=== PATIENT | male | born 1980 | race Caucasian/White ===

== ENCOUNTER 2016-09-25 09:49 | Inpatient (IN) | payer OTHER ==
[2016-09-25 10:10] VITALS: BMI 30.4
--- NOTE | 2016-09-25 10:35 | HP ---
COWS - Scale Resting Pulse: 1= [place] 81-100 Sweatin= Chills/Flushing Restless Observation: 3= Extraneous Movement Pupil Size: 0= Normal to Room Light Bone or Joint Aches: 1= Mild Discomfort Runny Nose/ Eye Tearin= Nasal Congestion GI Upset > 30mins: 1= Stomach Cramp Tremor Observation: 1= Tremor [place], Not Seen Yawning Observation: 1= 1-2x During Session Anxiety or Irritability: 2=Irritable/Anxious Goose Flesh Skin: 0=Smooth Skin COWS Score: 12 CIWA Score - CIWA Score Nausea/Vomitin-Mild Nausea/No Vomiting Muscle Tremors: 4-Moderate,w/Arms Extend Anxiety: 4-Mod. Anxious/Guarded Agitation: 2 Paroxysmal Sweats: 1-Minimal Palms Moist Orientation: 1-Uncertain about Date Tacttile Disturbances: 1-Very Mild Itch/Numbness Auditory Disturbances: 1-Very Mild Visual Disturbances: 1-Very Mild Sensitivity Headache: 2-Mild CIWA-Ar Total Score: 18 Admission ROS S - HPI Chief Complaint: I'm here to stop using drugs Allergies/Adverse Reactions: Allergies Allergy/AdvReac Type Severity Reaction Status Date / Time Penicillins Allergy Mild Itching Verified 09/25/16 10:31 History of Present Illness: 36 yo gentleman here for detox from alcohol, opiates, cocaine and K-2. History of drug related seizures, HIV, hepatitis C. Non adherent with medications - a call to pharmacy reveals he has not picked up medications from them since March 2016. Exam Limitations: Clinical Condition - Ebola screening Have you traveled outside of the country in the last 21 days: No Have you had contact with anyone from an Ebola affected area: No Have you been sick,other than usual withdrawal symptoms: No Do you have a fever: No - Review of Systems Constitutional: Chills, Loss of Appetite, Malaise, Night Sweats, Changes in sleep, Weakness EENT: reports: Nose Congestion Respiratory: reports: No Symptoms reported Cardiac: reports: No Symptoms Reported GI: reports: Poor Appetite, Indigestion : reports: No Symptoms Reported Musculoskeletal: reports: Joint Pain, Muscle Pain Integumentary: reports: No Symptoms Reported Neuro: reports: Headache, Tremors Endocrine: reports: No Symptoms Reported Hematology: reports: No Symptoms Reported Psychiatric: reports: Judgement Intact, Mood/Affect Appropiate, Anxious Other Systems: Reviewed and Negative Patient History - Patient Medical History Hx Anemia: No Hx Asthma: Yes Hx Chronic Obstructive Pulmonary Disease (COPD): No Hx Cancer: No Hx Cardiac Disorders: No Hx Congestive Heart Failure: No Hx Hypertension: Yes Hx Hypercholesterolemia: No Hx Pacemaker: No HX Cerebrovascular Accident: No Hx Seizures: Yes (4 years ago) Hx Dementia: No Hx Diabetes: No Hx Gastrointestinal Disorders: No Hx Liver Disease: No Hx Genitourinary Disorders: No Hx Sexually Transmitted Disorders: No Hx Renal Disease (ESRD): No Hx Thyroid Disease: No Hx Human Immunodeficiency Virus (HIV): Yes (t cells under 200, non adherent with meds) Hx Hepatitis C: Yes Hx Depression: Yes Hx Suicide Attempt: No (2011 hospitalized) Hx Bipolar Disorder: Yes - Patient Surgical History Past Surgical History: Yes Hx Orthopedic Surgery: Yes (bilateral hip replacement 2009, 2010 for avascular necrosis - [facility]) - PPD History Previous Implant?: Yes Documented Results: Negative w/o proof Implanted On Prior [facility] Admission?: No PPD to be Administered?: Yes - Reproductive History Patient is a Female of Child Bearing Age (11 -55 yrs old): No (male) - Smoking Cessation Smoking history: Current every day smoker Have you smoked in the past 12 months: Yes Aproximately how many cigarettes per day: 6 Hx Chewing Tobacco Use: No Initiated information on smoking cessation: Yes 'Breaking Loose' booklet given: 09/25/16 (given on floor) - Substance & Tx. History Hx Alcohol Use: Yes Hx Substance Use: Yes Substance Use Type: Alcohol, Cocaine, Heroin Hx Substance Use Treatment: Yes (detox, rehab, suboxone, methadone) - Substances Abused Alcohol Route: Oral Frequency: Daily Amount used: 1 liter Age of first use: 8 Date of Last Use: 09/24/16 Heroin Route: Injection Frequency: Daily Amount used: $100 Age of first use: 11 Date of Last Use: 09/24/16 Cocaine Route: Injection Frequency: 3-6 times per week Amount used: $50 Age of first use: 14 Date of Last Use: 09/24/16 K-2 Route: Smoking Frequency: 3-6 times per week Amount used: 3 Age of first use: 24 Date of Last Use: 09/24/16 Family Disease History - Family Disease History Family Disease History: Heart Disease: Mother Admission Physical Exam [facility] - Vital Signs Vital Signs: Vital Signs - 24 hr 09/25/16 10:08 Temperature 96.2 F L Pulse Rate 89 Respiratory 20 Rate Blood Pressure 108/67 - Physical General Appearance: Yes: Nourished, Appropriately Dressed, Moderate Distress, Tremorous, Anxious HEENTM: Yes: Hearing grossly Normal, Normal ENT Inspection, Normocephalic, Normal Voice, Pharynx Normal Respiratory: Yes: Normal Breath Sounds, No Respiratory Distress Neck: Yes: No masses,lesions,Nodules, Supple, Trachea in good position Breast: Yes: Breast Exam Deferred Cardiology: Yes: Regular Rhythm, Regular Rate Abdominal: Yes: Soft Genitourinary: Yes: Within Normal Limits Back: Yes: Normal Inspection Musculoskeletal: Yes: full range of Motion, Gait Steady, Muscle Pain Extremities: Yes: Normal Inspection Neurological: Yes: Alert, Motor Strength 5/5, Normal Mood/Affect, Normal Response Integumentary: Yes: Normal Color, Warm, Track [place] Lymphatic: Yes: Within Normal Limits - Diagnostic (1) AIDS (acquired immunodeficiency syndrome), CD4 <=200 Current Visit: Yes Status: Chronic (2) Alcohol dependence with uncomplicated withdrawal Current Visit: Yes Status: Chronic (3) Asthma Current Visit: Yes Status: Chronic Qualifiers: Asthma severity: mild persistent Asthma complication type: uncomplicated Qualified Code(s): J45.30 - Mild persistent asthma, uncomplicated (4) Cocaine dependence Current Visit: Yes Status: Chronic Qualifiers: Substance use status: uncomplicated Qualified Code(s): F14.20 - Cocaine dependence, uncomplicated (5) Hepatitis C Current Visit: Yes Status: Chronic Qualifiers: Viral hepatitis chronicity: chronic Hepatic coma status: without hepatic coma Qualified Code(s): B18.2 - Chronic viral hepatitis C (6) History of seizure Current Visit: Yes Status: Acute (7) Nicotine dependence Current Visit: Yes Status: Chronic Qualifiers: Nicotine product type: cigarettes Substance use status: uncomplicated Qualified Code(s): F17.210 - Nicotine dependence, cigarettes, uncomplicated (8) Uncomplicated opioid dependence Current Visit: Yes Status: Chronic Cleared for Admission [facility] - Detox or Rehab [facility] Level of Care: Medically Managed Detox Regimen/Protocol: Methadone/Librium [facility] Breath Alcohol Content Breath Alcohol Content: 0 Urine Drug Screen - Results Drug Screen Negative: No Urine Drug Screen Results: OPI-Opiates, BZO-Benzodiazepines, MTD-Methadone
[2016-09-25] MEDS ORDERED: METHADONE HCL 10 MG TABLET (FOR DETOX USE ONLY) PO ONE ×2 (11:06→23:00)
[2016-09-25] MEDS ORDERED: IBUPROFEN 400 MG TABLET (FP) PO PRN (11:06)
[2016-09-25] MEDS ORDERED: guaiFENesin/D-METHORPHAN HB 10 ML UNIT-DOSE CUPS PO PRN (11:06)
[2016-09-25] MEDS ORDERED: MAGNESIUM HYDROX 2400MG/30ML ORAL SUSPENSION 30 ML CUP PO PRN (11:06)
[2016-09-25] MEDS ORDERED: NICOTINE POLACRILEX 2 MG GUM BUC PRN (11:06)
[2016-09-25] MEDS ORDERED: ACETAMINOPHEN 325 MG TABLET (FP) PO PRN (11:06)
[2016-09-25] MEDS ORDERED: MAGNESIUM CITRATE 300 ML BOTTLE PO PRN (11:06)
[2016-09-25] MEDS ORDERED: MAG HYDROX/AL HYDROX/SIMETH 30 ML UNIT-DOSE CUP PO PRN (11:06)
[2016-09-25] MEDS ORDERED: chlordiazePOXIDE HCL 25 MG CAPSULE PO PRN (11:06)
[2016-09-25] MEDS ORDERED: P-EPHED 60MG/TRIPROLIDI 2.5MG TABLET PO PRN (11:06)
[2016-09-25] MEDS ORDERED: chlordiazePOXIDE HCL 25 MG CAPSULE PO ONE (11:06)
[2016-09-25] MEDS ORDERED: LOPERAMIDE HCL 2 MG CAPSULE PO PRN (11:06)
[2016-09-25] MEDS ORDERED: MENTHOL/PHENOL 1 EACH UD MM PRN (11:06)
[2016-09-25] MEDS ORDERED: ALBUTEROL SO4 6.7 GM HFA INHALER IH PRN (11:08)
[2016-09-25] MEDS: SULFAMETHOXAZOLE/TRIMETHOPRIM 800MG/160MG D.S. TABLET PO SCH (13:01)
[2016-09-25] MEDS: chlordiazePOXIDE HCL 25 MG CAPSULE PO SCH ×2 (17:15→22:35)
[2016-09-25 19:00] LABS: URINE APPEARANCE CLEAR; URINE BILIRUBIN NEGATIVE (NEGATIVE); URINE BLOOD NEGATIVE (NEGATIVE); URINE COLOR YELLOW; URINE GLUCOSE (UA) NEGATIVE (NEGATIVE); URINE KETONE 1+ (NEGATIVE); URINE LEUK ESTERASE NEGATIVE (NEGATIVE); URINE NITRITE NEGATIVE (NEGATIVE); URINE UROBILINOGEN 2.0 E.U/dl E.U./dl (0.2-1.0)
[2016-09-25 19:13] LABS: URINE PROTEIN 1+ (NEGATIVE)
[2016-09-25 19:15] LABS: URINE HYALINE CAST 1 /lpf; URINE MUCUS RARE; URINE RBC 2 /hpf (0-3); URINE WBC 1 /hpf (3-5)
[2016-09-25] MEDS: THIAMINE HCL 100 MG TABLET (FP) PO SCH (22:34)
[2016-09-25] MEDS: diphenhydrAMINE HCL 50 MG CAPSULE PO PRN (22:35)
[2016-09-25] MEDS: GABAPENTIN 400 MG CAPSULE (FP) PO SCH (22:35)
[2016-09-26] MEDS: chlordiazePOXIDE HCL 25 MG CAPSULE PO SCH ×4 (05:36→22:06)
[2016-09-26 09:48] LABS: MCH 31.1 pg (25.7-33.7); MCHC 34.4 g/dl (32.0-35.9); MEAN CELL VOLUME 90.6 fl (80-96); MEAN PLT VOLUME 9.4 fl (7.5-11.1); PLATELET COUNT 139 K/MM3 (134-434); RDW 13.9 % (11.9-15.9)
[2016-09-26] MEDS ORDERED: METHADONE HCL 10 MG TABLET (FOR DETOX USE ONLY) PO SCH (10:00)
[2016-09-26] MEDS: GABAPENTIN 400 MG CAPSULE (FP) PO SCH ×2 (10:06→22:06)
[2016-09-26] MEDS: SULFAMETHOXAZOLE/TRIMETHOPRIM 800MG/160MG D.S. TABLET PO SCH (10:07)
[2016-09-26] MEDS: PRENATAL VITAMINS W/ FOLIC ACID TABLET (FP) PO SCH (10:07)
[2016-09-26 11:15] LABS: ALK PHOS 57 U/L (45-117); ANION GAP 9 (8-16); BILIRUBIN,TOTAL 0.7 mg/dL (0.2-1.0); CALCIUM 8.5 mg/dL (8.5-10.1); CO2 27 mmol/L (21-32); GLUCOSE,RANDOM 81 mg/dL (74-106); SGOT/AST 42 U/L (15-37); SGPT/ALT 80 U/L (12-78); TOT PROT 8.4 g/dl (6.4-8.2)
--- NOTE | 2016-09-26 13:29 | PN ---
[facility] CIWA - CIWA Score Nausea/Vomitin-Mild Nausea/No Vomiting Muscle Tremors: 4-Moderate,w/Arms Extend Anxiety: 4-Mod. Anxious/Guarded Agitation: 4-Moderately Restless Paroxysmal Sweats: No Perspiration Orientation: 0-Oriented Tacttile Disturbances: 1-Very Mild Itch/Numbness Auditory Disturbances: 0-None Visual Disturbances: 0-None Headache: 3-Moderate CIWA-Ar Total Score: 17 S COWS - Scale Resting Pulse: 0= [place] 80 or Below Sweatin=Flushed/Facial Moisture Restless Observation: 3= Extraneous Movement Pupil Size: 0= Normal to Room Light Bone or Joint Aches: 2= Severe Diffuse Aches Runny Nose/ Eye Tearin= Runny Nose/Eyes GI Upset > 30mins: 1= Stomach Cramp Tremor Observation of Outstretched Hands: 2= Slight Tremor Visible Yawning Observation: 0= None Anxiety or Irritability: 2=Irritable/Anxious Goose Flesh Skin: 0=Smooth Skin COWS Score: 14 [facility] Progress Note (SOAP) Subjective: Anxious, restless, sweating, nausea, interrupted sleep, body aches Objective: 09/26/16 13:26 Last Vital Signs Temp Pulse Resp BP Pulse Ox 98.2 F 47 L 20 119/75 09/26/16 11:29 09/26/16 11:29 09/26/16 11:29 09/26/16 11:29 Laboratory Tests 09/25/16 09/26/16 09/26/16 17:00 06:05 06:05 WBC 5.0 RBC 4.77 Hgb 14.8 Hct 43.2 MCV 90.6 MCHC 34.4 RDW 13.9 Plt Count 139 MPV 9.4 Sodium 139 Potassium 3.9 Chloride 103 Carbon Dioxide 27 Anion Gap 9 BUN 11 Creatinine 1.0 Creat Clearance w eGFR > 60 Random Glucose 81 Calcium 8.5 Total Bilirubin 0.7 AST 42 H ALT 80 H Alkaline Phosphatase 57 Total Protein 8.4 H Albumin 4.0 Urine Color Yellow Urine Appearance Clear Urine pH 7.0 Ur Specific [place] 1.018 Urine Protein 1+ H Urine Glucose (UA) Negative Urine Ketones 1+ H Urine Blood Negative Urine Nitrite Negative Urine Bilirubin Negative Urine Urobilinogen 2.0 e.u/dl Ur Leukocyte Esterase Negative Urine RBC 2 Urine WBC 1 Hyaline Casts 1 Urine Mucus Rare RPR Titer 09/26/16 06:05 WBC RBC Hgb Hct MCV MCHC RDW Plt Count MPV Sodium Potassium Chloride Carbon Dioxide Anion Gap BUN Creatinine Creat Clearance w eGFR Random Glucose Calcium Total Bilirubin AST ALT Alkaline Phosphatase Total Protein Albumin Urine Color Urine Appearance Urine pH Ur Specific [place] Urine Protein Urine Glucose (UA) Urine Ketones Urine Blood Urine Nitrite Urine Bilirubin Urine Urobilinogen Ur Leukocyte Esterase Urine RBC Urine WBC Hyaline Casts Urine Mucus RPR Titer Nonreactive Labs noted: UA 1+ protein Assessment: 09/26/16 13:29 Withdrawal symptoms Interrupted sleep: stated seroquel helps with sleep Noted with proteinuria Plan: Continue detox Interrupted sleep: psychiatric consult for seroquel Proteinuria: encouraged to drink lots of water, repeat UA
[2016-09-26] MEDS: THIAMINE HCL 100 MG TABLET (FP) PO SCH (22:06)
[2016-09-26] MEDS: diphenhydrAMINE HCL 50 MG CAPSULE PO PRN (22:06)
--- NOTE | 2016-09-26 23:35 | EKG ---
Test Reason : Blood Pressure : / mmHG Vent. Rate : 049 BPM Atrial Rate : 049 BPM P-R Int : 126 ms QRS Dur : 084 ms QT Int : 466 ms P-R-T Axes : 019 054 051 degrees QTc Int : 420 ms SINUS BRADYCARDIA OTHERWISE NORMAL ECG NO PREVIOUS ECGS AVAILABLE Confirmed by CARLOS MANUEL FORD MD ([id number]) on 09/26/2016 11:35:31 PM Referred By: Confirmed By:CARLOS MANUEL FORD MD
[2016-09-27] MEDS: chlordiazePOXIDE HCL 25 MG CAPSULE PO SCH ×2 (05:46→10:05)
[2016-09-27] MEDS ORDERED: CYCLOBENZAPRINE HCL 10 MG TABLET (FP) PO ONE (09:50)
--- NOTE | 2016-09-27 09:57 | PN ---
[facility] CIWA - CIWA Score Nausea/Vomitin-Mild Nausea/No Vomiting Muscle Tremors: 3 Anxiety: 4-Mod. Anxious/Guarded Agitation: 4-Moderately Restless Paroxysmal Sweats: 3 Orientation: 0-Oriented Tacttile Disturbances: 1-Very Mild Itch/Numbness Auditory Disturbances: 0-None Visual Disturbances: 0-None Headache: 0-None Present CIWA-Ar Total Score: 16 [facility] COWS - Scale Resting Pulse: 0= [place] 80 or Below Sweatin=Flushed/Facial Moisture Restless Observation: 1= Difficult to Sit Still Pupil Size: 0= Normal to Room Light Bone or Joint Aches: 2= Severe Diffuse Aches Runny Nose/ Eye Tearin= Runny Nose/Eyes GI Upset > 30mins: 2= Nausea/Diarrhea Tremor Observation of Outstretched Hands: 2= Slight Tremor Visible Yawning Observation: 1= 1-2x During Session Anxiety or Irritability: 2=Irritable/Anxious Goose Flesh Skin: 0=Smooth Skin COWS Score: 14 S Progress Note (SOAP) Subjective: SWEATING,ANXIETY,TREMORS,INTERRUPTED SLEEP,RESTLESS,MUSCLE ACHES/SPASM. Objective: 09/27/16 09:57 Vital Signs - 8 hr 09/27/16 09/27/16 09/27/16 03:30 06:12 09:24 Temperature 96.6 F L 98.8 F Pulse Rate 52 L 69 Respiratory 18 16 18 Rate Blood Pressure 111/77 119/82 Laboratory Last Values WBC 5.0 K/mm3 (4.0-10.0) 09/26/16 06:05 RBC 4.77 M/mm3 (4.00-5.60) 09/26/16 06:05 Hgb 14.8 GM/dL (11.7-16.9) 09/26/16 06:05 Hct 43.2 % (35.4-49) 09/26/16 06:05 MCV 90.6 fl (80-96) 09/26/16 06:05 MCHC 34.4 g/dl (32.0-35.9) 09/26/16 06:05 RDW 13.9 % (11.9-15.9) 09/26/16 06:05 Plt Count 139 K/MM3 (134-434) 09/26/16 06:05 MPV 9.4 fl (7.5-11.1) 09/26/16 06:05 Sodium 139 mmol/L (136-145) 09/26/16 06:05 Potassium 3.9 mmol/L (3.5-5.1) 09/26/16 06:05 Chloride 103 mmol/L (98-107) 09/26/16 06:05 Carbon Dioxide 27 mmol/L (21-32) 09/26/16 06:05 Anion Gap 9 (8-16) 09/26/16 06:05 BUN 11 mg/dL (7-18) 09/26/16 06:05 Creatinine 1.0 mg/dL (0.7-1.3) 09/26/16 06:05 Creat Clearance w eGFR > 60 (>60) 09/26/16 06:05 Random Glucose 81 mg/dL (74-106) 09/26/16 06:05 Calcium 8.5 mg/dL (8.5-10.1) 09/26/16 06:05 Total Bilirubin 0.7 mg/dL (0.2-1.0) 09/26/16 06:05 AST 42 U/L (15-37) H 09/26/16 06:05 ALT 80 U/L (12-78) H 09/26/16 06:05 Alkaline Phosphatase 57 U/L (45-117) 09/26/16 06:05 Total Protein 8.4 g/dl (6.4-8.2) H 09/26/16 06:05 Albumin 4.0 g/dl (3.4-5.0) 09/26/16 06:05 Urine Color Yellow 09/25/16 17:00 Urine Appearance Clear 09/25/16 17:00 Urine pH 7.0 (5.0-8.0) 09/25/16 17:00 Ur Specific [place] 1.018 (1.001-1.035) 09/25/16 17:00 Urine Protein 1+ (NEGATIVE) H 09/25/16 17:00 Urine Glucose (UA) Negative (NEGATIVE) 09/25/16 17:00 Urine Ketones 1+ (NEGATIVE) H 09/25/16 17:00 Urine Blood Negative (NEGATIVE) 09/25/16 17:00 Urine Nitrite Negative (NEGATIVE) 09/25/16 17:00 Urine Bilirubin Negative (NEGATIVE) 09/25/16 17:00 Urine Urobilinogen 2.0 e.u/dl E.U./dl (0.2-1.0) 09/25/16 17:00 Ur Leukocyte Esterase Negative (NEGATIVE) 09/25/16 17:00 Urine RBC 2 /hpf (0-3) 09/25/16 17:00 Urine WBC 1 /hpf (3-5) 09/25/16 17:00 Hyaline Casts 1 /lpf 09/25/16 17:00 Urine Mucus Rare 09/25/16 17:00 RPR Titer Nonreactive (NONREACTIVE) 09/26/16 06:05 LABS NOTED Assessment: 09/27/16 09:57 WITHDRAWAL SX. Plan: CONTINUE DETOX
[2016-09-27] MEDS: METHADONE HCL 5 MG TABLET (FOR DETOX USE ONLY) PO SCH (10:04)
[2016-09-27] MEDS: PRENATAL VITAMINS W/ FOLIC ACID TABLET (FP) PO SCH (10:04)
[2016-09-27] MEDS: cloNIDine HCL 0.1 MG TABLET PO SCH ×2 (10:04→22:38)
[2016-09-27] MEDS: GABAPENTIN 400 MG CAPSULE (FP) PO SCH ×2 (10:04→22:38)
[2016-09-27] MEDS: SULFAMETHOXAZOLE/TRIMETHOPRIM 800MG/160MG D.S. TABLET PO SCH (10:04)
[2016-09-27] MEDS: CYCLOBENZAPRINE HCL 10 MG TABLET (FP) PO SCH ×2 (14:04→22:38)
--- NOTE | 2016-09-27 15:22 | CONSULT ---
[facility] Psychiatric Consult - Data Date of interview: 09/27/16 Admission source: [facility] Identifying data: Readmission to [facility] for this 36 y/o [place] male seeking detox treatment on for alcohl,heroin,marijuana (K2) and cocaine dependence.Patient is single without children,domiciled,unemployed and supported on SSI benefits. Substance Abuse History: - Smoking Cessation. Smoking history: Current every day smoker. Have you smoked in the past 12 months: Yes. Aproximately how many cigarettes per day: 6. Hx Chewing Tobacco Use: No. Initiated information on smoking cessation: Yes. 'Breaking Loose' booklet given: 09/25/16 (given on floor). - Substance & Tx. History. Hx Alcohol Use: Yes. Hx Substance Use: Yes. Substance Use Type: Alcohol, Cocaine, Heroin. Hx Substance Use Treatment : Yes (detox, rehab, suboxone, methadone). - Substances Abused. Alcohol. Route: Oral. Frequency: Daily. Amount used: 1 liter. Age of first use: 8. Date of Last Use: 09/24/16. Heroin. Route: Injection. Frequency: Daily. Amount used: $100. Age of first use: 11. Date of Last Use: 09/24/16. Cocaine. Route: Injection. Frequency: 3-6 times per week. Amount used: $50. Age of first use: 14. Date of Last Use: 09/24/16. K-2. Route: Smoking. Frequency: 3-6 times per week. Amount used: 3. Age of first use: 24. Date of Last Use: 09/24/16. Confirmed by patient. Medical History: Remarkable for a history of seizures,hepatitis C,HIV infection (non-compliant with medicatons),bronchial asthma,hypertension,low back pain and bilateral hip replacement (avascular necrosis). Psychiatric History: Patient reports a history of three psychiatric hospitalizations in his lifetime ([facility] and [facility] [place] [facility]Mr Hernandez endorses MDD,Anxiety Disorder and Panic Disorder.He indicates that he gets his outpatient psychiatric services at [facility].Medications are not recalled but he remembers that seroquel has been effective in the management of his chronic insomnia (50 mg/hs) during his recent incarceration.Patient denies history of suicide attempts. Physical/Sexual Abuse/Trauma History: Patient denies. Additional Comment: Urine Drug Screen Results: OPI-Opiates, BZO-Benzodiazepines , MTD-Methadone.Noted. Mental Status Exam - Mental Status Exam Alert and Oriented to: Time, Place, Person Cognitive Function: Grossly Intact Patient Appearance: Disheveled (thin habitus) Mood: Withdrawn, Anxious, Apprehensive Affect: Mood Congruent Patient Behavior: Sedated, Fatigued, Talkative, Cooperative Speech Pattern: Clear ([place] islander-speaking only but able to communicate with this va underwriter) Voice Loudness: Moderately Soft/Quiet Thought Process: Goal Oriented Thought Disorder: Not Present Hallucinations: Denies Suicidal Ideation: Denies Homicidal Ideation: Denies Insight/Judgement: Poor Sleep: Poorly, Difficulty falling asleep Appetite: Poor, Weight loss Muscle strength/Tone: Normal Gait/Station: Normal Psychiatric Findings - Problem List ([place] 1, 2,3) (1) Alcohol dependence with uncomplicated withdrawal Current Visit: Yes Status: Acute (2) Cocaine dependence Current Visit: Yes Status: Chronic Qualifiers: Substance use status: uncomplicated Qualified Code(s): F14.20 - Cocaine dependence, uncomplicated Comment: Self-report. (3) Nicotine dependence Current Visit: Yes Status: Acute Qualifiers: Nicotine product type: cigarettes Substance use status: uncomplicated Qualified Code(s): F17.210 - Nicotine dependence, cigarettes, uncomplicated (4) Uncomplicated opioid dependence Current Visit: Yes Status: Acute (5) Substance induced mood disorder Current Visit: Yes Status: Acute (6) History of seizure Current Visit: Yes Status: Chronic (7) AIDS (acquired immunodeficiency syndrome), CD4 <=200 Current Visit: Yes Status: Chronic (8) Asthma Current Visit: Yes Status: Chronic Qualifiers: Asthma severity: mild persistent Asthma complication type: uncomplicated Qualified Code(s): J45.30 - Mild persistent asthma, uncomplicated - Initial Treatment Plan Initial Treatment Plan: Psychoeducation.Detoxification.Seroquel 50 mg po hs.Side effects/benefits discussed with the patient.He agrees with this careplan.Observation.Search made through pharmacy claims for verification of medications :no data found.A report from [facility] indicates that the patient has NOT picked up scripts from his pharmacy,[facility] @ [address] [place] [id number] ([phone]),since March 2016.Mr David reported to this va underwriter that he just got [facility] from [facility] (09/11/2016) after serving an eight month sentence (charges not discussed).
[2016-09-27] MEDS: chlordiazePOXIDE 5 MG CAPSULE PO SCH ×2 (17:34→22:39)
[2016-09-27] MEDS: QUEtiapine FUMARATE 50 MG TABLET PO SCH (22:38)
[2016-09-27] MEDS: THIAMINE HCL 100 MG TABLET (FP) PO SCH (22:38)
[2016-09-28] MEDS: chlordiazePOXIDE 5 MG CAPSULE PO SCH ×2 (05:48→10:13)
[2016-09-28] MEDS: CYCLOBENZAPRINE HCL 10 MG TABLET (FP) PO SCH ×3 (05:48→22:15)
--- NOTE | 2016-09-28 09:42 | PN ---
[facility] Progress Note (SOAP) Subjective: ANIETY,SWEATS,TREMORS,TWITCHING. Objective: 09/28/16 09:41 Vital Signs Temperature 97.7 F 09/28/16 09:40 Pulse Rate 71 09/28/16 09:40 Respiratory Rate 20 09/28/16 09:40 Blood Pressure 97/64 09/28/16 09:40 O2 Sat by Pulse Oximetry (%) Laboratory Last Values WBC 5.0 K/mm3 (4.0-10.0) 09/26/16 06:05 RBC 4.77 M/mm3 (4.00-5.60) 09/26/16 06:05 Hgb 14.8 GM/dL (11.7-16.9) 09/26/16 06:05 Hct 43.2 % (35.4-49) 09/26/16 06:05 MCV 90.6 fl (80-96) 09/26/16 06:05 MCHC 34.4 g/dl (32.0-35.9) 09/26/16 06:05 RDW 13.9 % (11.9-15.9) 09/26/16 06:05 Plt Count 139 K/MM3 (134-434) 09/26/16 06:05 MPV 9.4 fl (7.5-11.1) 09/26/16 06:05 Sodium 139 mmol/L (136-145) 09/26/16 06:05 Potassium 3.9 mmol/L (3.5-5.1) 09/26/16 06:05 Chloride 103 mmol/L (98-107) 09/26/16 06:05 Carbon Dioxide 27 mmol/L (21-32) 09/26/16 06:05 Anion Gap 9 (8-16) 09/26/16 06:05 BUN 11 mg/dL (7-18) 09/26/16 06:05 Creatinine 1.0 mg/dL (0.7-1.3) 09/26/16 06:05 Creat Clearance w eGFR > 60 (>60) 09/26/16 06:05 Random Glucose 81 mg/dL (74-106) 09/26/16 06:05 Calcium 8.5 mg/dL (8.5-10.1) 09/26/16 06:05 Total Bilirubin 0.7 mg/dL (0.2-1.0) 09/26/16 06:05 AST 42 U/L (15-37) H 09/26/16 06:05 ALT 80 U/L (12-78) H 09/26/16 06:05 Alkaline Phosphatase 57 U/L (45-117) 09/26/16 06:05 Total Protein 8.4 g/dl (6.4-8.2) H 09/26/16 06:05 Albumin 4.0 g/dl (3.4-5.0) 09/26/16 06:05 Urine Color Yellow 09/25/16 17:00 Urine Appearance Clear 09/25/16 17:00 Urine pH 7.0 (5.0-8.0) 09/25/16 17:00 Ur Specific [place] 1.018 (1.001-1.035) 09/25/16 17:00 Urine Protein 1+ (NEGATIVE) H 09/25/16 17:00 Urine Glucose (UA) Negative (NEGATIVE) 09/25/16 17:00 Urine Ketones 1+ (NEGATIVE) H 09/25/16 17:00 Urine Blood Negative (NEGATIVE) 09/25/16 17:00 Urine Nitrite Negative (NEGATIVE) 09/25/16 17:00 Urine Bilirubin Negative (NEGATIVE) 09/25/16 17:00 Urine Urobilinogen 2.0 e.u/dl E.U./dl (0.2-1.0) 09/25/16 17:00 Ur Leukocyte Esterase Negative (NEGATIVE) 09/25/16 17:00 Urine RBC 2 /hpf (0-3) 09/25/16 17:00 Urine WBC 1 /hpf (3-5) 09/25/16 17:00 Hyaline Casts 1 /lpf 09/25/16 17:00 Urine Mucus Rare 09/25/16 17:00 RPR Titer Nonreactive (NONREACTIVE) 09/26/16 06:05 Assessment: 09/28/16 09:41 WITHDRAWAL SX Plan: CONTINUE DETOX
[2016-09-28] MEDS: METHADONE HCL 5 MG TABLET (FOR DETOX USE ONLY) PO SCH (10:13)
[2016-09-28] MEDS: GABAPENTIN 400 MG CAPSULE (FP) PO SCH ×2 (10:14→22:15)
[2016-09-28] MEDS: SULFAMETHOXAZOLE/TRIMETHOPRIM 800MG/160MG D.S. TABLET PO SCH (10:14)
[2016-09-28] MEDS: PRENATAL VITAMINS W/ FOLIC ACID TABLET (FP) PO SCH (10:14)
[2016-09-28] MEDS: cloNIDine HCL 0.1 MG TABLET PO SCH ×2 (10:17→22:15)
[2016-09-28] MEDS: chlordiazePOXIDE HCL 10 MG CAPSULE PO SCH ×2 (17:15→22:15)
[2016-09-28] MEDS: THIAMINE HCL 100 MG TABLET (FP) PO SCH (22:15)
[2016-09-28] MEDS: QUEtiapine FUMARATE 50 MG TABLET PO SCH (22:15)
[2016-09-29] MEDS: chlordiazePOXIDE HCL 10 MG CAPSULE PO SCH ×2 (06:03→10:06)
[2016-09-29] MEDS: CYCLOBENZAPRINE HCL 10 MG TABLET (FP) PO SCH ×3 (06:03→22:34)
--- NOTE | 2016-09-29 08:33 | PN ---
[facility] Progress Note (SOAP) Subjective: ANXIETY,SWEATS,FATIGUE. Objective: 09/29/16 08:32 Vital Signs Temperature 96.3 F L 09/29/16 06:43 Pulse Rate 58 L 09/29/16 06:43 Respiratory Rate 18 09/29/16 06:43 Blood Pressure 113/76 09/29/16 06:43 O2 Sat by Pulse Oximetry (%) Assessment: 09/29/16 08:32 WITHDRAWAL SX Plan: CONTINUE DETOX
[2016-09-29] MEDS ORDERED: METHADONE HCL 10 MG TABLET (FOR DETOX USE ONLY) PO SCH (10:00)
[2016-09-29] MEDS: SULFAMETHOXAZOLE/TRIMETHOPRIM 800MG/160MG D.S. TABLET PO SCH (10:05)
[2016-09-29] MEDS: PRENATAL VITAMINS W/ FOLIC ACID TABLET (FP) PO SCH (10:05)
[2016-09-29] MEDS: cloNIDine HCL 0.1 MG TABLET PO SCH ×2 (10:05→22:34)
[2016-09-29] MEDS: GABAPENTIN 400 MG CAPSULE (FP) PO SCH ×2 (10:05→22:34)
[2016-09-29] MEDS: THIAMINE HCL 100 MG TABLET (FP) PO SCH (22:33)
[2016-09-29] MEDS: QUEtiapine FUMARATE 50 MG TABLET PO SCH (22:34)
[2016-09-30] MEDS: CYCLOBENZAPRINE HCL 10 MG TABLET (FP) PO SCH ×3 (05:54→22:23)
[2016-09-30] MEDS ORDERED: METHADONE HCL 5 MG TABLET (FOR DETOX USE ONLY) PO SCH (06:00)
[2016-09-30] MEDS: PRENATAL VITAMINS W/ FOLIC ACID TABLET (FP) PO SCH (10:08)
[2016-09-30] MEDS: cloNIDine HCL 0.1 MG TABLET PO SCH ×2 (10:08→22:23)
[2016-09-30] MEDS: GABAPENTIN 400 MG CAPSULE (FP) PO SCH ×2 (10:08→22:23)
[2016-09-30] MEDS: SULFAMETHOXAZOLE/TRIMETHOPRIM 800MG/160MG D.S. TABLET PO SCH (10:08)
--- NOTE | 2016-09-30 11:27 | PN ---
[facility] Progress Note (SOAP) Subjective: ANXIETY,IRRITABILITY,MUSCLE AND BONE ACHES, LOSS OF APPETITE. PT STATES "PERCOCETS FOR PAIN ON THE STREET. MOTRIN NOT WORKING". Objective: 09/30/16 11:24 Vital Signs Temperature 96.5 F L 09/30/16 10:25 Pulse Rate 100 H 09/30/16 10:25 Respiratory Rate 18 09/30/16 10:25 Blood Pressure 111/73 09/30/16 10:25 O2 Sat by Pulse Oximetry (%) Assessment: 09/30/16 11:24 WITHDRAWAL SX Plan: CONTINUE DETOX NAPROSYN AND LIDOCAINE PATCH DIRECTED FOR PAIN. MOTRIN D/C'D. ENCOURAGED PO FLUIDS.
[2016-09-30] MEDS ORDERED: LIDOCAINE 5% TOPICAL PATCH TP SCH (11:30)
[2016-09-30] MEDS: NAPROXEN 500 MG TABLET (FP) PO SCH ×2 (12:56→22:23)
[2016-09-30] MEDS: QUEtiapine FUMARATE 50 MG TABLET PO SCH (22:23)
[2016-09-30] MEDS: THIAMINE HCL 100 MG TABLET (FP) PO SCH (22:23)
[2016-10-01] MEDS: CYCLOBENZAPRINE HCL 10 MG TABLET (FP) PO SCH (05:33)
--- NOTE | 2016-10-01 09:40 | DS ---
[facility] Detox Discharge Summary Admission Date: 09/25/16 Discharge Date: 10/01/16 - History Present History: Alcohol Dependence, Cocaine Dependence, Opioid Dependence, K 2 Additional Comments: PT COMPLETED DETOX Pertinent Past History: ASTHMA HEPC SEIZURE DISORDER AIDS MOOD DISORDER - Physical Exam Results Vital Signs: Vital Signs Temperature 98 F 10/01/16 06:37 Pulse Rate 59 L 10/01/16 06:37 Respiratory Rate 18 10/01/16 06:37 Blood Pressure 107/72 10/01/16 06:37 O2 Sat by Pulse Oximetry (%) Pertinent Admission Physical Exam Findings: WITHDRAWAL SX - Treatment Hospital Course: Detox Protocol Followed, Detoxed Safely, Responded well, Discharged Condition Good - Medication Discharge Medications: Ambulatory Orders Albuterol Sulfate Inhaler - [Ventolin HFA Inhaler -] 2 inh PO Q4H PRN 09/25/16 Amlodipine Besylate [Norvasc -] 5 mg PO DAILY 09/25/16 Beclomethasone Dipropionate [Qvar] 8.7 gm IH DAILY 09/25/16 Darunavir Ethanolate [Prezista -] 800 mg PO DAILY 09/25/16 Dolutegravir Sodium [Tivicay] 50 mg PO DAILY 09/25/16 Fluoxetine HCl [Prozac -] 40 mg PO DAILY 09/25/16 Gabapentin [Neurontin -] 400 mg PO BID 09/25/16 Mirtazapine [Remeron -] 45 mg PO HS 09/25/16 Risperidone [Risperdal -] 2 mg PO DAILY 09/25/16 Ritonavir [Norvir -] 100 mg PO DAILY 09/25/16 Sulfamethoxazole/Trimethoprim [Bactrim DS -] 1 tab PO DAILY 09/25/16 Quetiapine Fumarate [Seroquel -] 50 mg PO HS #30 tablet 09/29/16 - Diagnosis (1) Alcohol dependence with uncomplicated withdrawal Current Visit: Yes Status: Acute (2) Nicotine dependence Current Visit: Yes Status: Chronic Qualifiers: Nicotine product type: cigarettes Substance use status: uncomplicated Qualified Code(s): F17.210 - Nicotine dependence, cigarettes, uncomplicated (3) Uncomplicated opioid dependence Current Visit: Yes Status: Acute (4) AIDS (acquired immunodeficiency syndrome), CD4 <=200 Current Visit: Yes Status: Chronic (5) Asthma Current Visit: Yes Status: Chronic Qualifiers: Asthma severity: mild persistent Asthma complication type: uncomplicated Qualified Code(s): J45.30 - Mild persistent asthma, uncomplicated (6) Cocaine dependence Current Visit: Yes Status: Acute Qualifiers: Substance use status: uncomplicated Qualified Code(s): F14.20 - Cocaine dependence, uncomplicated (7) Hepatitis C Current Visit: Yes Status: Chronic Qualifiers: Viral hepatitis chronicity: chronic Hepatic coma status: without hepatic coma Qualified Code(s): B18.2 - Chronic viral hepatitis C (8) History of seizure Current Visit: Yes Status: Chronic - AMA Did Patient Leave Against Medical Advice: No
[2016-10-01 09:54] VITALS: BP 109/73; PULSE 77; TEMP 95.1
== END 2016-10-01 09:47 | disposition home or self-care (01) | DRG 773 ==
LOC: YASAS 09:49 → Y3N 10:12
PROVIDERS: ADMIT Internal Medicine; ATTEND Internal Medicine
PROC: HZ2ZZZZ Detoxification Services for Substance Abuse Treatment (ICD-10-PCS; principal; 2016-09-25)
DX: F11.20 Opioid dependence, uncomplicated (principal); F10.230 Alcohol dependence with withdrawal, uncomplicated; F14.20 Cocaine dependence, uncomplicated; F17.210 Nicotine dependence, cigarettes, uncomplicated; B20 Human immunodeficiency virus [HIV] disease; J45.30 Mild persistent asthma, uncomplicated; I10 Essential (primary) hypertension; B18.2 Chronic viral hepatitis C; M54.5 Low back pain; R80.9 Proteinuria, unspecified; Z91.14 Patient's other noncompliance with medication regimen; Z96.643 Presence of artificial hip joint, bilateral
CPT/HCPCS: 36415; 80053; 81003; 81015; 85027; 86593; 93005; 93010